=== PATIENT | female | born 1955 | race Caucasian/White ===

== ENCOUNTER → 2017-07-14 | Outpatient (CLI) | payer BC | END | disposition home or self-care (01) | LOC: LABWHC1 08:31 | PROVIDERS: ATTEND Family Medicine | DX: R61 Generalized hyperhidrosis (principal); R68.83 Chills (without fever) | CPT/HCPCS: 36415; 82024; 82533 ==

== ENCOUNTER → 2017-08-27 | Outpatient (CLI) | payer BC ==
[2017-08-27 17:54] LABS: ACTH <5.00 pg/mL (0.00-45.99)
== END | disposition home or self-care (01) ==
LOC: LABWHC1 09:48
PROVIDERS: ATTEND Internal Medicine Endocrinology, Diabetes & Metabolism
DX: R53.83 Other fatigue (principal)
CPT/HCPCS: 36415; 82024; 82533; 82728; 84146

== ENCOUNTER 2018-01-26 19:55 | Emergency (ER) | payer BC ==
[2018-01-26] MEDS ORDERED: SODIUM CHLORIDE 0.9% 1,000 ML IV STA ×2 (20:54→22:06)
--- NOTE | 2018-01-26 20:59 | ED ---
Abdominal Pain HPI - General Chief Complaint: Abdominal Pain Stated Complaint: nausea/tired Time Seen by Provider: 01/26/18 20:40 Source: patient, RN notes reviewed Mode of arrival: ambulatory Limitations: no limitations - History of Present Illness Initial Comments: This is a 62-year-old female that sensory benign past medical history except for many months of intermittent episodes of nausea feeling weak over last several days is had progressively worsening weakness and also nausea decreased oral intake and she also states she's had dark and black colored stools which she's never had before. He had extensive workups for this and started apparently in April of this year when her both became ill he is recovered but she has not. She does states she has some lower abdominal discomfort in addition to the above she has a fevers chills no sweats at this time though she did have that in the past no dysuria no hematuria. She also states her saliva seems be thicker. MD Complaint: abdominal pain, other - Related Data Home Medications Medication Instructions Recorded Confirmed No Known Home Medications 01/26/18 01/26/18 Allergies Allergy/AdvReac Type Severity Reaction Status Date / Time metoclopramide [From Reglan] AdvReac Nausea & Verified 01/26/18 20:36 Vomiting Review of Systems ROS Statement: Those systems with pertinent positive or pertinent negative responses have been documented in the HPI. ROS Other: All systems not noted in ROS Statement are negative. Past Medical History Past Medical History: No Reported History History of Any Multi-Drug Resistant Organisms: None Reported Past Surgical History: Tonsillectomy Past Psychological History: No Psychological Hx Reported Smoking Status: Never smoker Past Alcohol Use History: None Reported Past Drug Use History: None Reported General Exam - General Exam Comments Initial Comments: This is a well-developed asthenic appearing female who is awake alert oriented 3 Limitations: no limitations General appearance: alert, anxious Head exam: Present: atraumatic, normocephalic, normal inspection Eye exam: Present: normal appearance, PERRL, EOMI. Absent: scleral icterus, conjunctival injection, periorbital swelling ENT exam: Present: mucous membranes dry Neck exam: Present: normal inspection. Absent: tenderness, meningismus, lymphadenopathy Respiratory exam: Present: normal lung sounds bilaterally. Absent: respiratory distress, wheezes, rales, rhonchi, stridor Cardiovascular Exam: Present: regular rate, normal rhythm, normal heart sounds. Absent: systolic murmur, diastolic murmur, rubs, gallop, clicks GI/Abdominal exam: Present: soft, normal bowel sounds. Absent: distended, tenderness, guarding, rebound, rigid, bruit, pulsatile mass, hernia Rectal exam: Present: normal inspection, other (I did perform a rectal exam with a female nurse present no gross blood no hemorrhoids no masses Hemoccult is pending) Extremities exam: Present: normal inspection, full ROM, normal capillary refill. Absent: tenderness, pedal edema, joint swelling, calf tenderness Back exam: Present: normal inspection Neurological exam: Present: alert, oriented X3, CN II-XII intact Psychiatric exam: Present: normal affect, normal mood Skin exam: Present: warm, dry, intact, normal color. Absent: rash Course Vital Signs 01/26/18 01/26/18 01/26/18 20:14 20:32 20:40 Temperature 98.2 F Pulse Rate 90 79 81 Respiratory 20 16 16 Rate Blood Pressure 124/75 126/74 O2 Sat by Pulse 97 98 Oximetry 01/26/18 01/26/18 01/26/18 20:50 21:00 21:10 Temperature Pulse Rate 87 86 71 Respiratory 16 16 16 Rate Blood Pressure 126/74 112/79 O2 Sat by Pulse 98 99 98 Oximetry 01/26/18 01/26/18 01/26/18 21:20 21:30 21:40 Temperature Pulse Rate 83 70 70 Respiratory 19 26 H 11 L Rate Blood Pressure 112/79 112/79 112/79 O2 Sat by Pulse 98 97 98 Oximetry 01/26/18 01/26/18 01/26/18 21:50 22:00 22:10 Temperature Pulse Rate 72 70 73 Respiratory 11 L 12 22 Rate Blood Pressure 105/66 105/66 106/62 O2 Sat by Pulse 97 95 95 Oximetry 01/26/18 01/26/18 22:20 22:30 Temperature Pulse Rate 73 67 Respiratory 16 31 H Rate Blood Pressure 106/62 106/62 O2 Sat by Pulse 97 97 Oximetry Medical Decision Making - Medical Decision Making I did discuss findings with patient and her . Patient is demonstrating evidence of dehydration she received IV fluids she will be discharged with continued follow-up with her doctor and return when necessary the hepatitis panel is pending. The family is aware this. - Lab Data Result diagrams: 01/26/18 21:22 01/26/18 21:22 Lab Results 01/26/18 01/26/18 01/26/18 Range/Units 21:02 21:04 21:22 WBC (3.8-10.6) k/uL RBC (3.80-5.40) m/uL Hgb (11.4-16.0) gm/dL Hct (34.0-46.0) % MCV (80.0-100.0) fL MCH (25.0-35.0) pg MCHC (31.0-37.0) g/dL RDW (11.5-15.5) % Plt Count (150-450) k/uL Neutrophils % % Lymphocytes % % Monocytes % % Eosinophils % % Basophils % % Neutrophils # (1.3-7.7) k/uL Lymphocytes # (1.0-4.8) k/uL Monocytes # (0-1.0) k/uL Eosinophils # (0-0.7) k/uL Basophils # (0-0.2) k/uL Sodium 142 (137-145) mmol/L Potassium 4.4 (3.5-5.1) mmol/L Chloride 103 (98-107) mmol/L Carbon Dioxide 30 (22-30) mmol/L Anion Gap 9 mmol/L BUN 21 H (7-17) mg/dL Creatinine 0.66 (0.52-1.04) mg/dL Est GFR (CKD-EPI)AfAm >90 (>60 ml/min/1.73 sqM) Est GFR (CKD-EPI)NonAf >90 (>60 ml/min/1.73 sqM) Glucose 94 (74-99) mg/dL Plasma Lactic Acid Cm (0.7-2.0) mmol/L Calcium 10.0 (8.4-10.2) mg/dL Magnesium 2.2 (1.6-2.3) mg/dL Total Bilirubin 0.6 (0.2-1.3) mg/dL AST 21 (14-36) U/L ALT 27 (9-52) U/L Alkaline Phosphatase 51 (38-126) U/L Total Creatine Kinase (30-135) U/L CK-MB (CK-2) (0.0-2.4) ng/mL CK-MB (CK-2) Rel Index Troponin I (0.000-0.034) ng/mL Total Protein 7.2 (6.3-8.2) g/dL Albumin 4.4 (3.5-5.0) g/dL Amylase 61 (30-110) U/L Lipase 241 (23-300) U/L Urine Color Yellow Urine Appearance Clear (Clear) Urine pH 5.0 (5.0-8.0) Ur Specific [place] 1.020 (1.001-1.035) Urine Protein Negative (Negative) Urine Glucose (UA) Negative (Negative) Urine Ketones Negative (Negative) Urine Blood Negative (Negative) Urine Nitrite Negative (Negative) Urine Bilirubin Negative (Negative) Urine Urobilinogen <2.0 (<2.0) mg/dL Ur Leukocyte Esterase Small H (Negative) Urine RBC 4 (0-5) /hpf Urine WBC 8 H (0-5) /hpf Ur Squamous Epith Cells <1 (0-4) /hpf Amorphous Sediment Rare H (None) /hpf Urine Mucus Occasional H (None) /hpf Stool Occult Blood NEG (Negative) Hepatitis A IgM Ab Blood Type Blood Type Confirm Blood Type Recheck Antibody Screen Spec Expiration Date 01/26/18 01/26/18 01/26/18 Range/Units 21:22 21:22 21:22 WBC 8.6 (3.8-10.6) k/uL RBC 4.96 (3.80-5.40) m/uL Hgb 15.2 (11.4-16.0) gm/dL Hct 45.4 (34.0-46.0) % MCV 91.7 (80.0-100.0) fL MCH 30.6 (25.0-35.0) pg MCHC 33.4 (31.0-37.0) g/dL RDW 12.3 (11.5-15.5) % Plt Count 319 (150-450) k/uL Neutrophils % 73 % Lymphocytes % 18 % Monocytes % 7 % Eosinophils % 1 % Basophils % 1 % Neutrophils # 6.3 (1.3-7.7) k/uL Lymphocytes # 1.5 (1.0-4.8) k/uL Monocytes # 0.6 (0-1.0) k/uL Eosinophils # 0.0 (0-0.7) k/uL Basophils # 0.0 (0-0.2) k/uL Sodium (137-145) mmol/L Potassium (3.5-5.1) mmol/L Chloride (98-107) mmol/L Carbon Dioxide (22-30) mmol/L Anion Gap mmol/L BUN (7-17) mg/dL Creatinine (0.52-1.04) mg/dL Est GFR (CKD-EPI)AfAm (>60 ml/min/1.73 sqM) Est GFR (CKD-EPI)NonAf (>60 ml/min/1.73 sqM) Glucose (74-99) mg/dL Plasma Lactic Acid Cm 1.1 (0.7-2.0) mmol/L Calcium (8.4-10.2) mg/dL Magnesium (1.6-2.3) mg/dL Total Bilirubin (0.2-1.3) mg/dL AST (14-36) U/L ALT (9-52) U/L Alkaline Phosphatase (38-126) U/L Total Creatine Kinase 34 (30-135) U/L CK-MB (CK-2) 0.4 (0.0-2.4) ng/mL CK-MB (CK-2) Rel Index 1.2 Troponin I <0.012 (0.000-0.034) ng/mL Total Protein (6.3-8.2) g/dL Albumin (3.5-5.0) g/dL Amylase (30-110) U/L Lipase (23-300) U/L Urine Color Urine Appearance (Clear) Urine pH (5.0-8.0) Ur Specific [place] (1.001-1.035) Urine Protein (Negative) Urine Glucose (UA) (Negative) Urine Ketones (Negative) Urine Blood (Negative) Urine Nitrite (Negative) Urine Bilirubin (Negative) Urine Urobilinogen (<2.0) mg/dL Ur Leukocyte Esterase (Negative) Urine RBC (0-5) /hpf Urine WBC (0-5) /hpf Ur Squamous Epith Cells (0-4) /hpf Amorphous Sediment (None) /hpf Urine Mucus (None) /hpf Stool Occult Blood (Negative) Hepatitis A IgM Ab Blood Type Blood Type Confirm Blood Type Recheck Antibody Screen Spec Expiration Date 10/16/18 10/16/18 10/16/18 Range/Units 21:22 21:23 21:31 WBC (3.8-10.6) k/uL RBC (3.80-5.40) m/uL Hgb (11.4-16.0) gm/dL Hct (34.0-46.0) % MCV (80.0-100.0) fL MCH (25.0-35.0) pg MCHC (31.0-37.0) g/dL RDW (11.5-15.5) % Plt Count (150-450) k/uL Neutrophils % % Lymphocytes % % Monocytes % % Eosinophils % % Basophils % % Neutrophils # (1.3-7.7) k/uL Lymphocytes # (1.0-4.8) k/uL Monocytes # (0-1.0) k/uL Eosinophils # (0-0.7) k/uL Basophils # (0-0.2) k/uL Sodium (137-145) mmol/L Potassium (3.5-5.1) mmol/L Chloride (98-107) mmol/L Carbon Dioxide (22-30) mmol/L Anion Gap mmol/L BUN (7-17) mg/dL Creatinine (0.52-1.04) mg/dL Est GFR (CKD-EPI)AfAm (>60 ml/min/1.73 sqM) Est GFR (CKD-EPI)NonAf (>60 ml/min/1.73 sqM) Glucose (74-99) mg/dL Plasma Lactic Acid Cm (0.7-2.0) mmol/L Calcium (8.4-10.2) mg/dL Magnesium (1.6-2.3) mg/dL Total Bilirubin (0.2-1.3) mg/dL AST (14-36) U/L ALT (9-52) U/L Alkaline Phosphatase (38-126) U/L Total Creatine Kinase (30-135) U/L CK-MB (CK-2) (0.0-2.4) ng/mL CK-MB (CK-2) Rel Index Troponin I (0.000-0.034) ng/mL Total Protein (6.3-8.2) g/dL Albumin (3.5-5.0) g/dL Amylase (30-110) U/L Lipase (23-300) U/L Urine Color Urine Appearance (Clear) Urine pH (5.0-8.0) Ur Specific [place] (1.001-1.035) Urine Protein (Negative) Urine Glucose (UA) (Negative) Urine Ketones (Negative) Urine Blood (Negative) Urine Nitrite (Negative) Urine Bilirubin (Negative) Urine Urobilinogen (<2.0) mg/dL Ur Leukocyte Esterase (Negative) Urine RBC (0-5) /hpf Urine WBC (0-5) /hpf Ur Squamous Epith Cells (0-4) /hpf Amorphous Sediment (None) /hpf Urine Mucus (None) /hpf Stool Occult Blood (Negative) Hepatitis A IgM Ab NEGATIVE Blood Type A Negative Blood Type Confirm A Negative Blood Type Recheck CABO Indicated Antibody Screen NEGATIVE Spec Expiration Date 01/29/20182321 - Radiology Data Radiology results: report reviewed (I did review the imaging and report no acute findings.), image reviewed Disposition Clinical Impression: Dehydration, Weakness Disposition: HOME SELF-CARE Condition: Good Instructions: Dehydration (ED) Additional Instructions: Keep your follow-up appointments as planned and follow with her own physician. Is patient prescribed a controlled substance at d/c from ED?: No Referrals: Thierry Singh MD [Primary Care Provider] - 1-2 days
[2018-01-26 21:38] LABS: Basophils % (A) 1 %; Eosinophils % (A) 1 %; HCT 45.4 % (34.0-46.0); HGB 15.2 gm/dL (11.4-16.0); Lymphocytes # (A) 1.5 k/uL (1.0-4.8); Lymphocytes % (A) 18 %; MCH 30.6 pg (25.0-35.0); MCHC 33.4 g/dL (31.0-37.0); MCV 91.7 fL (80.0-100.0); Mean Platelet Volume 6.4; Monocytes # (A) 0.6 k/uL (0-1.0); Monocytes % (A) 7 %; Neutrophils # (A) 6.3 k/uL (1.3-7.7); Neutrophils % (A) 73 %; Platelet Count 319 k/uL (150-450); RBC 4.96 m/uL (3.80-5.40); RDW 12.3 % (11.5-15.5); WBC 8.6 k/uL (3.8-10.6)
[2018-01-26 21:47] LABS: ALT 27 U/L (9-52); AST 21 U/L (14-36); Albumin 4.4 g/dL (3.5-5.0); Alkaline Phosphatase 51 U/L (38-126); Amylase 61 U/L (30-110); Anion Gap 9 mmol/L; Blood Urea Nitrogen 21 mg/dL (7-17); Carbon Dioxide 30 mmol/L (22-30); Chloride 103 mmol/L (98-107); Glucose 94 mg/dL (74-99); Lipase 241 U/L (23-300); Magnesium 2.2 mg/dL (1.6-2.3); Potassium 4.4 mmol/L (3.5-5.1); Sodium 142 mmol/L (137-145); Total Bilirubin 0.6 mg/dL (0.2-1.3); Total Protein 7.2 g/dL (6.3-8.2)
[2018-01-26 21:49] LABS: Amorphous Sediment,Urine Rare /hpf; Appearance,Urine Clear (Clear); Bilirubin,Urine Negative (Negative); Blood,Urine Negative (Negative); Color,Urine Yellow; Glucose,Urine (UA) Negative (Negative); Ketones,Urine Negative (Negative); Leukocyte Esterase,Urine Small (Negative); Mucus,Urine Occasional /hpf; Nitrite,Urine Negative (Negative); Protein,Urine Negative (Negative); RBC,Urine 4 /hpf (0-5); Squamous Epithelial Cell,Urine <1 /hpf (0-4); Urobilinogen,Urine <2.0 mg/dL (<2.0); WBC,Urine 8 /hpf (0-5)
[2018-01-26 21:49] LABS: Creatine Kinase 34 U/L (30-135)
--- NOTE | 2018-01-26 21:49 | XR ---
EXAMINATION TYPE: XR chest 2V DATE OF EXAM: 01/26/2018 COMPARISON: NONE HISTORY: Abdominal pain TECHNIQUE: Frontal and lateral views of the chest are obtained. FINDINGS: Heart and mediastinum are normal. Lungs are clear. Diaphragm is normal. Bony thorax is int act. IMPRESSION: Normal chest.
--- NOTE | 2018-01-26 21:51 | XR ---
EXAMINATION TYPE: XR KUB DATE OF EXAM: 01/26/2018 COMPARISON: NONE HISTORY: Abdominal pain TECHNIQUE: Abdominal pain FINDINGS: There is no sign of intestinal obstruction or pneumoperitoneum. Fecal pattern is normal. Th ere is mild thoracolumbar dextroscoliosis. There are no pathologic calcifications over the kidneys. IMPRESSION: Nonacute abdomen.
[2018-01-26 22:02] LABS: Creatine Kinase MB 0.4 ng/mL (0.0-2.4); Troponin I <0.012 ng/mL (0.000-0.034)
[2018-01-26 22:26] LABS: Hepatitis A Antibody IgM NEGATIVE
[2018-01-26 23:18] VITALS: BP 118/70; PULSE 75; RESP 19; TEMP 99
[2018-01-27 04:26] LABS: Hepatitis B Core IgM Non-Reactive (Non-Reactive)
== END 2018-01-26 23:26 | disposition home or self-care (01) ==
LOC: EC 19:55
DX: E86.0 Dehydration (principal); R10.30 Lower abdominal pain, unspecified; R11.0 Nausea; Z88.8 Allergy status to other drugs, medicaments and biological substances
CPT/HCPCS: 36415; 71046; 74018; 80053; 80074; 81001; 82150; 82272; 82550; 82553; 83605; 83690; 83735; 84484; 85025; 86850; 86900; 86901; 96360; 96361; 99284

== ENCOUNTER 2023-08-04 17:26 | Observation (INO) | payer MEDICARE, BC ==
[2023-08-04 18:00] LABS: Basophils % (A) 0 %; Eosinophils # (A) 0.1 k/uL (0-0.7); Eosinophils % (A) 1 %; HCT 46.5 % (34.0-46.0); HGB 15.3 gm/dL (11.4-16.0); Lymphocytes # (A) 1.3 k/uL (1.0-4.8); Lymphocytes % (A) 12 %; MCH 30.4 pg (25.0-35.0); MCHC 32.9 g/dL (31.0-37.0); MCV 92.5 fL (80.0-100.0); Mean Platelet Volume 7.3; Monocytes # (A) 0.4 k/uL (0-1.0); Monocytes % (A) 4 %; Neutrophils # (A) 8.3 k/uL (1.3-7.7); Neutrophils % (A) 82 %; Platelet Count 274 k/uL (150-450); RBC 5.03 m/uL (3.80-5.40); WBC 10.2 k/uL (3.8-10.6)
--- NOTE | 2023-08-04 18:05 | CT ---
EXAMINATION TYPE: CT brain wo con DATE OF EXAM: 08/04/2023 COMPARISON: None INDICATION: AMS DLP: 1099.4 mGycm, Automated exposure control for dose reduction was used. CONTRAST: None CT of the brain is performed utilizing 3 mm thick sections through the posterior fossa and 3 mm thick sections through the remaining calvarium. Study is performed within 24 hours of arrival to the hosp ital. No abnormal hyperdensity is present to suggest an acute intracranial hemorrhage. No mass lesion is evident. No acute infarcts are evident. Ventricles and sulci are appropriate for the patient age. Paranasal sinuses and mastoid air cells within the [id number] are clear. IMPRESSION: 1. No acute intracranial process. Follow-up MRI can be performed as clinically indicated
[2023-08-04 18:07] LABS: INR 0.9 (<1.2); Partial Thromboplastin Time 24.2 sec (22.0-30.0); Prothrombin Time 10.4 sec (10.0-12.5)
[2023-08-04 18:11] LABS: ALT 20 U/L (4-34); AST 24 U/L (14-36); African American GFR (CKD) >90 (>60 ml/min/1.73 sqM); Albumin 4.9 g/dL (3.5-5.0); Alkaline Phosphatase 69 U/L (38-126); Anion Gap 8 mmol/L; Blood Urea Nitrogen 17 mg/dL (7-17); Calcium 10.5 mg/dL (8.4-10.2); Carbon Dioxide 29 mmol/L (22-30); Chloride 104 mmol/L (98-107); Glucose 126 mg/dL (74-99); Non-African American GFR(CKD) >90 (>60 ml/min/1.73 sqM); Potassium 4.6 mmol/L (3.5-5.1); Sodium 141 mmol/L (137-145); Total Bilirubin 0.8 mg/dL (0.2-1.3); Total Protein 7.5 g/dL (6.3-8.2)
--- NOTE | 2023-08-04 19:03 | ED ---
General Adult HPI - General Chief complaint: Altered Mental Status Stated complaint: AMS Time Seen by Provider: 08/04/23 17:35 Source: patient, family, RN notes reviewed, old records reviewed Mode of arrival: ambulatory Limitations: no limitations, altered mental status - History of Present Illness Initial comments: Is a 67-year-old female with no significant past medical history. Patient is brought in by family because she was having difficulty remembering things today she was at the dentist office with her about 10:00 this morning and she could not remember her age could not member the month or year. Patient continues to be repetitive patient has had no recent med changes patient has no trauma. Patient has no pain. Patient is just having trouble remembering and especially short-term memory as of today. Patient eventually was able to remember the date month and day but it was difficult for her to recall. Patient denies any similar history. - Related Data Home Medications Medication Instructions Recorded Confirmed Calcium Carbonate [Calcium] 1,200 mg PO DAILY 08/04/23 08/04/23 Cholecalciferol [Vitamin D3 (25 25 mcg PO DAILY 08/04/23 08/04/23 Mcg = 1000 Iu)] Multivitamins, Thera [Multivitamin 1 tab PO DAILY 08/04/23 08/04/23 (formulary)] Allergies Allergy/AdvReac Type Severity Reaction Status Date / Time metoclopramide [From Reglan] AdvReac [place] like Verified 08/04/23 19:39 mouth and stomach were on fire Review of Systems ROS Statement: Those systems with pertinent positive or pertinent negative responses have been documented in the HPI. ROS Other: All systems not noted in ROS Statement are negative. Past Medical History Past Medical History: No Reported History History of Any Multi-Drug Resistant Organisms: None Reported Past Surgical History: No Surgical Hx Reported, Tonsillectomy Past Psychological History: No Psychological Hx Reported Past Alcohol Use History: None Reported Past Drug Use History: None Reported General Exam - General Exam Comments Initial Comments: GENERAL: Patient is well-developed and well-nourished. Patient is nontoxic and well- hydrated and is in no acute distress. ENT: Neck is soft and supple. No significant lymphadenopathy is noted. Oropharynx is clear. Moist mucous membranes. Neck has full range of motion without eliciting any pain. EYES: The sclera were anicteric and conjunctiva were pink and moist. Extraocular movements were intact and pupils were equal round and reactive to light. Eyelids were unremarkable. PULMONARY: Unlabored respirations. Good breath sounds bilaterally. No audible rales rhonchi or wheezing was noted. CARDIOVASCULAR: There is a regular rate and rhythm without any murmurs gallops or rubs. ABDOMEN: Soft and nontender with normal bowel sounds. No palpable organomegaly was noted. SKIN: Skin is clear with no lesions or rashes and otherwise unremarkable. NEUROLOGIC: Patient is alert and oriented x3. Cranial nerves II through XII are grossly intact. Motor and sensory are also intact. Normal speech, volume and content. Symmetrical smile. Patient's NIH is 0. Patient was oriented x 3 but was slow to answer those questions. Family states since she has been in the room here she has asked 3 times for her to explain what happened at the dentist office today MUSCULOSKELETAL: Normal extremities with adequate strength and full range of motion. LYMPHATICS: No significant lymphadenopathy is noted PSYCHIATRIC: Normal psychiatric evaluation. Limitations: no limitations, altered mental status Course Vital Signs 08/04/23 08/04/23 08/04/23 17:36 17:39 18:47 Temperature 98 F 98 F 98.2 F Pulse Rate 93 93 89 Respiratory 16 16 16 Rate Blood Pressure 159/84 159/84 O2 Sat by Pulse 99 99 98 Oximetry Medical Decision Making - Medical Decision Making EKG was interpreted by myself. EKG shows a sinus rhythm at 84 bpm MI interval is 152 QRS is 84 QT interval 347 QTc is 388. Patient's EKG shows no ST segment elevation or depression. Was pt. sent in by a medical professional or institution (, PA, GEOLOGY SCIENTIST, urgent care, hospital, or retirement...) When possible be specific @ -No Did you speak to anyone other than the patient for history (EMS, parent, family, police, friend...)? What history was obtained from this source @ -No Did you review nursing and triage notes (agree or disagree)? Why? @ -I reviewed and agree with nursing and triage notes Were old charts reviewed (outside hosp., previous admission, EMS record, old EKG, old radiological studies, urgent care reports/EKG's, retirement records)? Report findings @ -No old charts were reviewed Differential Diagnosis (chest pain, altered mental status, abdominal pain women, abdominal pain men, vaginal bleeding, weakness, fever, dyspnea, syncope, headache, dizziness, GI bleed, back pain, seizure, CVA, palpatations, mental health, musculoskeletal)? @ -Differential Altered Mental Status: Hypoglycemia, DKA, hypercapnia, ETOH, overdose, CO poisoning, trauma, myxedema coma, HTN encephalopathy, infection, encephalitis, psychosis, intercranial hemorrhage, hepatic encephalopathy, meningitis, CVA, this is not meant to be an all-inclusive list EKG interpreted by me (3pts min.). @ -As above X-rays interpreted by me (1pt min.). @ -None done CT interpreted by me (1pt min.). @ -CT of the brain shows no acute abnormality U/S interpreted by me (1pt. min.). @ -None done What testing was considered but not performed or refused? (CT, X-rays, U/S, labs)? Why? @ -None What meds were considered but not given or refused? Why? @ -None Did you discuss the management of the patient with other professionals (professionals i.e. , PA, GEOLOGY SCIENTIST, lab, RT, psych nurse, health and social care teacher, display trimmer, teacher, business liaison officer, adult protective caseworker)? Give summary @ -I spoke with sound physicians they agreed to admit the patient Was smoking cessation discussed for >3mins.? @ -No Was critical care preformed (if so, how long)? @ -No Were there social determinants of health that impacted care today? How? (Homelessness, low income, unemployed, alcoholism, drug addiction, transportation, low edu. Level, literacy, decrease access to med. care, shelter, rehab)? @ -No Was there de-escalation of care discussed even if they declined (Discuss DNR or withdrawal of care, Hospice)? DNR status @ -No What co-morbidities impacted this encounter? (DM, HTN, Smoking, COPD, CAD, Cancer, CVA, ARF, Chemo, Hep., AIDS, mental health diagnosis, sleep apnea, morbid obesity)? @ -None Was patient admitted / discharged? Hospital course, mention meds given and route, prescriptions, significant lab abnormalities, going to OR and other perti nent info. @ -Patient's lab work and CT of the brain all came back normal. I went back in to give the results to the patient and the family and the patient continued to be very repetitive and forgot today's events even though they have discussed the multiple times. Undiagnosed new problem with uncertain prognosis? @ -No Drug Therapy requiring intensive monitoring for toxicity (Heparin, Nitro, Ins ulin, Cardizem)? @ -No Were any procedures done? @ -No Diagnosis/symptom? @ -Altered mental status Acute, or Chronic, or Acute on Chronic? @ -Acute Uncomplicated (without systemic symptoms) or Complicated (systemic symptoms)? @ -Comp Side effects of treatment? @ -No Exacerbation, Progression, or Severe Exacerbation? @ -No Poses a threat to life or bodily function? How? (Chest pain, [place], [place], pneumonia, PE, COPD, DKA, ARF, appy, cholecystitis, CVA, Diverticulitis, Homicidal, Suicidal, threat to staff... and all critical care pts) @ -Yes this could lead to a CVA and endorgan dysfunction - Lab Data Result diagrams: 08/04/23 17:42 08/04/23 17:42 Lab Results 08/04/23 08/04/23 08/04/23 Range/Units 17:42 17:42 17:42 WBC 10.2 (3.8-10.6) k/uL RBC 5.03 (3.80-5.40) m/uL Hgb 15.3 (11.4-16.0) gm/dL Hct 46.5 H (34.0-46.0) % MCV 92.5 (80.0-100.0) fL MCH 30.4 (25.0-35.0) pg MCHC 32.9 (31.0-37.0) g/dL RDW 12.0 (11.5-15.5) % Plt Count 274 (150-450) k/uL MPV 7.3 Neutrophils % 82 % Lymphocytes % 12 % Monocytes % 4 % Eosinophils % 1 % Basophils % 0 % Neutrophils # 8.3 H (1.3-7.7) k/uL Lymphocytes # 1.3 (1.0-4.8) k/uL Monocytes # 0.4 (0-1.0) k/uL Eosinophils # 0.1 (0-0.7) k/uL Basophils # 0.0 (0-0.2) k/uL PT 10.4 (10.0-12.5) sec INR 0.9 (<1.2) APTT 24.2 (22.0-30.0) sec Sodium 141 (137-145) mmol/L Potassium 4.6 (3.5-5.1) mmol/L Chloride 104 (98-107) mmol/L Carbon Dioxide 29 (22-30) mmol/L Anion Gap 8 mmol/L BUN 17 (7-17) mg/dL Creatinine 0.57 (0.52-1.04) mg/dL Est GFR (CKD-EPI)AfAm >90 (>60 ml/min/1.73 sqM) Est GFR (CKD-EPI)NonAf >90 (>60 ml/min/1.73 sqM) Glucose 126 H (74-99) mg/dL Calcium 10.5 H (8.4-10.2) mg/dL Total Bilirubin 0.8 (0.2-1.3) mg/dL AST 24 (14-36) U/L ALT 20 (4-34) U/L Alkaline Phosphatase 69 (38-126) U/L Troponin I (0.000-0.034) ng/mL Total Protein 7.5 (6.3-8.2) g/dL Albumin 4.9 (3.5-5.0) g/dL Urine Color Urine Appearance (Clear) Urine pH (5.0-8.0) Ur Specific [place] (1.001-1.035) Urine Protein (Negative) Urine Glucose (UA) (Negative) Urine Ketones (Negative) Urine Blood (Negative) Urine Nitrite (Negative) Urine Bilirubin (Negative) Urine Urobilinogen (<2.0) mg/dL Ur Leukocyte Esterase (Negative) Urine RBC (0-5) /hpf Urine WBC (0-5) /hpf Urine Mucus (None) /hpf Urine Opiates Screen (NotDetected) Ur Oxycodone Screen (NotDetected) Urine Methadone Screen (NotDetected) Ur Barbiturates Screen (NotDetected) U Tricyclic Antidepress (NotDetected) Ur Phencyclidine Scrn (NotDetected) Ur Amphetamines Screen (NotDetected) U Methamphetamines Scrn (NotDetected) U Benzodiazepines Scrn (NotDetected) Urine Cocaine Screen (NotDetected) U Marijuana (THC) Screen (NotDetected) 08/04/23 08/04/23 Range/Units 17:42 19:03 WBC (3.8-10.6) k/uL RBC (3.80-5.40) m/uL Hgb (11.4-16.0) gm/dL Hct (34.0-46.0) % MCV (80.0-100.0) fL MCH (25.0-35.0) pg MCHC (31.0-37.0) g/dL RDW (11.5-15.5) % Plt Count (150-450) k/uL MPV Neutrophils % % Lymphocytes % % Monocytes % % Eosinophils % % Basophils % % Neutrophils # (1.3-7.7) k/uL Lymphocytes # (1.0-4.8) k/uL Monocytes # (0-1.0) k/uL Eosinophils # (0-0.7) k/uL Basophils # (0-0.2) k/uL PT (10.0-12.5) sec INR (<1.2) APTT (22.0-30.0) sec Sodium (137-145) mmol/L Potassium (3.5-5.1) mmol/L Chloride (98-107) mmol/L Carbon Dioxide (22-30) mmol/L Anion Gap mmol/L BUN (7-17) mg/dL Creatinine (0.52-1.04) mg/dL Est GFR (CKD-EPI)AfAm (>60 ml/min/1.73 sqM) Est GFR (CKD-EPI)NonAf (>60 ml/min/1.73 sqM) Glucose (74-99) mg/dL Calcium (8.4-10.2) mg/dL Total Bilirubin (0.2-1.3) mg/dL AST (14-36) U/L ALT (4-34) U/L Alkaline Phosphatase (38-126) U/L Troponin I <0.012 (0.000-0.034) ng/mL Total Protein (6.3-8.2) g/dL Albumin (3.5-5.0) g/dL Urine Color Colorless Urine Appearance Clear (Clear) Urine pH 6.0 (5.0-8.0) Ur Specific [place] 1.011 (1.001-1.035) Urine Protein Negative (Negative) Urine Glucose (UA) Negative (Negative) Urine Ketones 2+ H (Negative) Urine Blood Small H (Negative) Urine Nitrite Negative (Negative) Urine Bilirubin Negative (Negative) Urine Urobilinogen <2.0 (<2.0) mg/dL Ur Leukocyte Esterase Small H (Negative) Urine RBC 6 H (0-5) /hpf Urine WBC 13 H (0-5) /hpf Urine Mucus Rare H (None) /hpf Urine Opiates Screen Not Detected (NotDetected) Ur Oxycodone Screen Not Detected (NotDetected) Urine Methadone Screen Not Detected (NotDetected) Ur Barbiturates Screen Not Detected (NotDetected) U Tricyclic Antidepress Not Detected (NotDetected) Ur Phencyclidine Scrn Not Detected (NotDetected) Ur Amphetamines Screen Not Detected (NotDetected) U Methamphetamines Scrn Not Detected (NotDetected) U Benzodiazepines Scrn Not Detected (NotDetected) Urine Cocaine Screen Not Detected (NotDetected) U Marijuana (THC) Screen Not Detected (NotDetected) Disposition Clinical Impression: Altered mental status Disposition: ADMITTED IP TO THIS HOSP Referrals: None,Stated [REFERRING] - 1-2 days Time of Disposition: 20:33
[2023-08-04 19:15] LABS: Appearance,Urine Clear (Clear); Bilirubin,Urine Negative (Negative); Blood,Urine Small (Negative); Color,Urine Colorless; Glucose,Urine (UA) Negative (Negative); Ketones,Urine 2+ (Negative); Leukocyte Esterase,Urine Small (Negative); Mucus,Urine Rare /hpf; Nitrite,Urine Negative (Negative); Protein,Urine Negative (Negative); RBC,Urine 6 /hpf (0-5); Specific Gravity,Urine 1.011 (1.001-1.035); Urobilinogen,Urine <2.0 mg/dL (<2.0); WBC,Urine 13 /hpf (0-5)
[2023-08-04 19:21] LABS: Amphetamine Screen,Urine Not Detected (NotDetected); Barbiturate Screen,Urine Not Detected (NotDetected); Benzodiazepines Screen,Urine Not Detected (NotDetected); Cocaine Screen,Urine Not Detected (NotDetected); Methadone Screen, Urine Not Detected (NotDetected); Opiate Screen,Urine Not Detected (NotDetected); Oxycodone Screen, Urine Not Detected (NotDetected); Phencyclidine Screen,Urine Not Detected (NotDetected); Tricyclic Antidepressant,Urine Not Detected (NotDetected); Urn Cannabinoid Scrn Not Detected (NotDetected)
[2023-08-04] MEDS: cefTRIAXone IN SWFI 1,000 MG/10 ML SYRINGE IVP STA (20:44)
[2023-08-04] MEDS: SODIUM CHLORIDE 0.9% 1,000 ML IV ONE (20:48)
[2023-08-04] MEDS: ASPIRIN 325 MG TAB PO STA (20:49)
--- NOTE | 2023-08-05 01:06 | P.HPIM ---
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 Family got concerned and decided to bring her to the hospital the hallway to the hospital which was about 50 minutes she kept asking the same questions over and over again which did not make any sense to the family, was out of character for the patient, otherwise no report of any fevers chills headache changes in vision or hearing no report of any facial droop changes in speech, no report of any weakness numbness tingling in her upper or lower extremities no falls no head injuries. Patient denies any history of stroke or TIAs. While interviewing the patient she seems to have short-term memory loss and she keeps repeating the same questions and will have the same reactions every time I mentioned that were suspecting a stroke she seems to be surprised and as if she is hearing it for the first time. Patient daughter and were at bedside assisting with history taking Otherwise the patient seems to be very pleasant and with elevated mood. She is very talkative however forgetful. No report of tobacco smoking illicit drugs or heavy alcohol review of systems Pertinent positives as noted in HPI. All other systems were reviewed and are negative on exam Constitutional: No acute distress, conversant, pleasant Eyes: Anicteric sclerae, moist conjunctiva, Pupils equal round reactive to light ENMT: NC/AT Oropharynx clear, no erythema, or exudates Neck: Supple, no masses, or JVD No carotid bruits No thyromegaly Lungs: Clear to auscultation Clear to percussion Normal respiratory effort, no accessory muscle use Cardiovascular: Heart regular in rate and rhythm, No murmurs, gallops, or rubs No peripheral edema Abdominal: Soft Nontender, no guarding, rebound or rigidity Abdomen moving with respiration Normoactive bowel sounds Extremities: No digital cyanosis No clubbing Pedal pulses intact and symmetrical Radial pulses intact and symmetrical No calf tenderness Psychiatric: Alert and oriented to person, place Neuro Muscles Strength 5/5 in all 4 extremities Sensation to light touch grossly present throughout Cranial nerves II-XII grossly intact finger-nose exam intact heel dove exam intact Lymphatics: no palpable cervical or supraclavicular lymph nodes Past Medical History Past Medical History: No Reported History History of Any Multi-Drug Resistant Organisms: None Reported Past Surgical History: No Surgical Hx Reported, Tonsillectomy Past Psychological History: No Psychological Hx Reported Past Alcohol Use History: None Reported Past Drug Use History: None Reported Medications and Allergies Home Medications Medication Instructions Recorded Confirmed Type Calcium Carbonate [Calcium] 1,200 mg PO DAILY 08/04/23 08/04/23 History Cholecalciferol [Vitamin D3 (25 25 mcg PO DAILY 08/04/23 08/04/23 History Mcg = 1000 Iu)] Multivitamins, Thera [Multivitamin 1 tab PO DAILY 08/04/23 08/04/23 History (formulary)] Allergies Allergy/AdvReac Type Severity Reaction Status Date / Time metoclopramide [From Reglan] AdvReac [place] like Verified 08/04/23 19:39 mouth and stomach were on fire Physical Exam Vitals: Vital Signs Temp Pulse Resp BP Pulse Ox 08/04/23 23:00 80 17 104/71 95 08/04/23 21:00 85 19 135/85 97 08/04/23 20:45 98.4 F 93 17 137/77 97 08/04/23 18:47 98.2 F 89 16 98 08/04/23 17:39 98 F 93 16 159/84 99 08/04/23 17:36 98 F 93 16 159/84 99 Intake and Output 08/04/23 08/04/23 08/05/23 14:59 22:59 06:59 Other: Weight 49.895 kg Results CBC & Chem 7: 08/04/23 17:42 08/04/23 17:42 Labs: Abnormal Lab Results - Last 24 Hours (Table) 08/04/23 08/04/23 08/04/23 Range/Units 17:42 17:42 19:03 Hct 46.5 H (34.0-46.0) % Neutrophils # 8.3 H (1.3-7.7) k/uL Glucose 126 H (74-99) mg/dL Calcium 10.5 H (8.4-10.2) mg/dL Urine Ketones 2+ H (Negative) Urine Blood Small H (Negative) Ur Leukocyte Esterase Small H (Negative) Urine RBC 6 H (0-5) /hpf Urine WBC 13 H (0-5) /hpf Urine Mucus Rare H (None) /hpf Assessment and Plan Assessment: 67-year-old female no significant past medical history coming into the hospital for evaluation of behavioral changes confusion disorientation repeating same questions short term memory loss I discussed case with ED doctor accepted the admission for possible stroke for neurologic evaluation with anticipated length of stay more than 2 midnights Confusion disorientation suspected underlying ischemic stroke CT of the brain no acute intracranial pathology Check carotid ultrasound Check echocardiogram Check lipid profile Patient started on full dose aspirin, statin 40 mg p.o. daily Continue with neurochecks Fall precautions PT/OT evaluation Allow for permissive hypertension Gentle IV fluid hydration normal saline Blood work showing white count of 10.2, urine analysis unremarkable, patient denies any urinary symptoms Patient received 2 doses of Rocephin antibiotic in the ED will discontinue for now and monitor off antibiotics Patient afebrile Renal function unremarkable sodium 141 potassium 4.6 BUN 17 creatinine 0.5 Urine drug screen negative Full code DVT prophylaxis heparin subcu 3 times daily
[2023-08-05] MEDS: ASPIRIN 325 MG TAB PO SCH (08:13)
[2023-08-05] MEDS: ATORVASTATIN 40 MG TAB PO SCH (08:13)
[2023-08-05] MEDS: HEPARIN SODIUM,PORCINE 5,000 UNIT/ML 1 ML VIAL SQ SCH (08:13)
--- NOTE | 2023-08-05 13:10 | CA ---
Transthoracic Echo Report Name: Sherry Gillis Age: 67 Gender: F : 1955 Exam Date: 08/05/2023 07:41 Exam Location: [place] [facility] Ht (in): 63 Wt (lb): 110 Ordering Physician: Jaime Perez MD Attending/Referring Phys: [id number], Chris Texturing Machine Fixer Gerda Ramsey, ANGELO Procedure CPT: Indications: With bubble study, possible stroke Cardiac Hx: Technical Quality: Good Contrast 1: Agitated Saline Total Dose (mL): Contrast 2: Total Dose (mL): MEASUREMENTS (Male / Female) Normal Values 2D ECHO LV Diastolic Diameter PLAX 3.7 cm 4.2 - 5.9 / 3.9 - 5.3 cm LV Systolic Diameter PLAX 2.4 cm IVS Diastolic Thickness 0.7 cm 0.6 - 1.0 / 0.6 - 0.9 cm LVPW Diastolic Thickness 0.7 cm 0.6 - 1.0 / 0.6 - 0.9 cm LV Relative Wall Thickness 0.4 RV Internal Dim ED PLAX 2.6 cm LA Systolic Diameter LX 2.5 cm 3.0 - 4.0 / 2.7 - 3.8 cm LV Diastolic Volume MOD BP 51.7 cm??? 67 - 155 / 56 - 104 cm??? LV Systolic Volume MOD BP 12.5 cm??? 22 - 58 / 19 - 49 cm??? LV Ejection Fraction MOD BP 75.8 % >= 55 % LV Cardiac Index MOD BP 2059.2 cm???/min???m??? LV Diastolic Volume MOD 4C 45.4 cm??? LV Systolic Volume MOD 4C 11.5 cm??? LV Ejection Fraction MOD 4C 74.7 % LV Cardiac Index MOD 4C 1778.5 cm???/min???m??? LV Diastolic Length 4C 6.9 cm LV Systolic Length 4C 4.9 cm LV Diastolic Volume MOD 2C 49.3 cm??? LV Systolic Volume MOD 2C 13.4 cm??? LV Ejection Fraction MOD 2C 72.7 % LV Cardiac Index MOD 2C 1882.0 cm???/min???m??? LV Diastolic Length 2C 5.7 cm LV Systolic Length 2C 4.8 cm M-MODE Aortic Root Diameter MM 2.4 cm LA Systolic Diameter MM 3.2 cm LA Ao Ratio MM 1.4 DOPPLER AV Peak Velocity 168.8 cm/s AV Peak Gradient 11.4 mmHg AI Peak Velocity 381.7 cm/s AI Peak Gradient 58.3 mmHg AI Pressure Half Time 712.4 ms Mitral E Point Velocity 85.8 cm/s Mitral A Point Velocity 82.1 cm/s Mitral E to A Ratio 1.0 MV Deceleration Time 213.1 ms MV E' Velocity 8.2 cm/s Mitral E to MV E' Ratio 10.4 TR Peak Velocity 233.5 cm/s TR Peak Gradient 21.8 mmHg Right Ventricular Systolic Press 26.9 mmHg FINDINGS Left Ventricle Left ventricular ejection fraction is estimated at 60-65%. Normal Left ventricular size, wall thickness, systolic function with no obvious regional wall motion abnormalities. Normal Left ventricular diastolic filling pattern. Right Ventricle Right ventricle at upper limits of normal. Right ventricular systolic pressure within normal limits. Right Atrium Mild right atrial dilatation. Negative agitated saline bubble study for right to left shunt. Left Atrium Normal left atrial size. No spontaneous echo contrast seen in the left atrium. No patent foramen ovale. No evidence for an atrial septal defect. Mitral Valve Structurally normal mitral valve. No mitral stenosis. Mild mitral regurgitation. Aortic Valve Trileaflet aortic valve. Mild aortic regurgitation. No aortic stenosis. Tricuspid Valve Structurally normal tricuspid valve. Moderate tricuspid regurgitation. Pulmonic Valve Structurally normal pulmonic valve. No pulmonic stenosis. No pulmonic regurgitation. Pericardium No pericardial or pleural effusion. Aorta Normal size aortic root and proximal ascending aorta. CONCLUSIONS Normal LV systolic function Mild biatrial enlargement Previewed by: Dr. Dion Olea MD (Electronically Signed) Final Date: 05 August 2023 13:09
--- NOTE | 2023-08-05 14:28 | P.PN ---
Subjective Progress Note Date: 08/05/23 67-year-old female with no significant past medical history presents the ED. She was at her dentist appointment when she started having behavioral changes with disorientation and confusion. She was found to be repeating the same sentences. Her family got concerned which prompted them to bring her to the ED. Denies facial droop, focal neurologic deficit. No falls or head trauma. No history of CVA or [place]. In the ED, she underwent extensive evaluation. BP 159/84, HR 93, RR 16, T 98F, 99% on RA. CBC, coag panel, CMP performed significant for hematocrit of 46.5, glucose 126 and calcium 10.5. Troponin less than 0.012. Urinalysis 2+ ketone, small blood, small leukocyte esterase with [address] brain negative for acute process. EKG sinus rhythm with no ST elevation or depression. Patient is admitted for further workup and management. 08/04 Patient was seen and examined. Family at bedside. Forgetfulness improved reported by family. No concerns. UDS negative. Echocardiogram normal preserved EF mild MR/AR/TR. General: non toxic, no distress, appears at stated age Derm: warm, dry Head: atraumatic, normocephalic, symmetric Eyes: EOMI, no lid lag, anicteric sclera Mouth: no lip lesion, mucus membranes moist Cardiovascular: S1S2 reg, no murmur Lungs: CTA bilateral, no rhonchi, no rales , no accessory muscle use Ext: no gross muscle atrophy, no edema, no contractures Neuro: no focal neuro deficits Psych: Alert, oriented, appropriate affect Based on my assessment of this patient, this patient meets a high complexity level of care. Patient has an acute diagnosis of forgetfulness and confusion that poses a threat to life or bodily function. Forgetfulness and Confusion: CVA workup. MRI brain ordered. Echo. Carotid doppler. A1c and Lipid panel. PT/OT/ST consult. Telemetry monitoring. Advanced neurochecks. Neurology consulted. Abnormal UA: No urinary symptoms. No treatment. CODE STATUS: FULL CODE DVT Prophylaxis: Heparin GI Prophylaxis: Designated medical POA if patient is not able to make medical decisions for themselves: I have reviewed the following licensed tax consultant notes: I have reviewed the results of the following tests: Echo. UDS. I have ordered the following tests: MRI brain. I have discussed the care of this patient with the following independent historian: I have independently interpreted the following test below: I have discussed the management of this patient with the following physician: Dr. Irizarry Objective - Vital Signs Vital signs: Vital Signs Temp 97.8 F 08/05/23 07:44 Pulse 80 08/05/23 07:44 Resp 16 08/05/23 07:44 BP 111/73 08/05/23 07:44 Pulse Ox 97 08/05/23 07:44 FiO2 Intake & Output 08/04/23 08/05/23 08/05/23 18:59 06:59 18:59 Weight 49.895 kg - Labs CBC & Chem 7: 08/04/23 17:42 08/04/23 17:42 Labs: Abnormal Lab Results - Last 24 Hours (Table) 08/04/23 08/04/23 08/04/23 Range/Units 17:42 17:42 19:03 Hct 46.5 H (34.0-46.0) % Neutrophils # 8.3 H (1.3-7.7) k/uL Glucose 126 H (74-99) mg/dL Calcium 10.5 H (8.4-10.2) mg/dL Urine Ketones 2+ H (Negative) Urine Blood Small H (Negative) Ur Leukocyte Esterase Small H (Negative) Urine RBC 6 H (0-5) /hpf Urine WBC 13 H (0-5) /hpf Urine Mucus Rare H (None) /hpf
[2023-08-05 15:35] LABS: LDL Cholesterol,Calculated 123.2 mg/dL (0.0-131.0); VLDL Calculation 14.78 mg/dL (5.00-40.00)
--- NOTE | 2023-08-05 16:07 | MR ---
EXAMINATION TYPE: MR brain wo con DATE OF EXAM: 08/05/2023 COMPARISON: 08/04/2023 CT HISTORY: CVA. CONTRAST: Performed utilizing 0 mL intravenous Gadavist gadolinium contrast. TECHNIQUE: Multiplanar, multiecho imaging on a 3.0 [place] magnet is performed through the brain. Stud y is performed within 24 hours of arrival to the hospital. The craniovertebral junction is normal. The pituitary is normal. Diffusion-weighted imaging is performed. No abnormal hyperintensity is present to suggest an acute i ntracranial infarct or acute ischemic change. There is a punctate hyperintensity in subcortical white matter left frontal lobe. Series 601 image 27 . Subcortical white matter changes in the right frontal lobe, series 601 image 2221 Ventricles and sulci are appropriate for the patient age. IMPRESSION: 1. Couple of nonspecific punctate subcortical white matter changes within the frontal lobes. Findings are nonspecific but could be related to migraine headaches. Microvascular ischemic change, vasculiti s, multiple sclerosis could be considered within the differential. 2. No acute intracranial process evident.
--- NOTE | 2023-08-05 17:13 | P.CNNES ---
History of Present Illness Consult date: 08/05/23 Requesting physician: Sage Calvillo Reason for Consult: altered mental status, short term memory loss History of Present Illness: this is a 67-year-old woman who presented emergency department because of confusion. Patient stated that yesterday at 12:30 PM she was notified that she was confused when she was repeating herself per family members. 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 She was repeating the same questions. Patient does not recall the episode. She denies of any fever, focal weakness, numbness, denies any headache. Fenies any similar episodes like this in the past.denies of any recent travels or any sick contacts. She denies any history of stroke, TIAs or seizures.she denies of any tobacco use or illicit drug use or alcohol use. some of the workup during his hospital visit consisted of: White blood cell is normal. Sodium is 141, creatinine is 0.57, calcium 7.5, AST ALT is within normal limits Initial serum glucose is 126 Lipid panel is a triglyceride of 73, cholesterol 253, LDLs [address] of the head is reported as no acute intracranial process. I personally reviewed the CT of the head and I agree there is no acute subacute process. 2-D echo was reported as normal left ventricle. Function. Mild biatrial enlargement. No evidence for atrial septal defect. Review of Systems the positive and negative as per HPI. Past Medical History Past Medical History: No Reported History History of Any Multi-Drug Resistant Organisms: None Reported Past Surgical History: No Surgical Hx Reported, Tonsillectomy Past Psychological History: No Psychological Hx Reported Past Alcohol Use History: None Reported Past Drug Use History: None Reported Medications and Allergies Home Medications Medication Instructions Recorded Confirmed Type Calcium Carbonate [Calcium] 1,200 mg PO DAILY 08/04/23 08/04/23 History Cholecalciferol [Vitamin D3 (25 25 mcg PO DAILY 08/04/23 08/04/23 History Mcg = 1000 Iu)] Multivitamins, Thera [Multivitamin 1 tab PO DAILY 08/04/23 08/04/23 History (formulary)] Allergies Allergy/AdvReac Type Severity Reaction Status Date / Time metoclopramide [From Reglan] AdvReac [place] like Verified 08/04/23 19:39 mouth and stomach were on fire Physical Examination - Vital Signs Vital Signs: Vital Signs Temp Pulse Resp BP Pulse Ox 08/05/23 12:57 98.2 F 77 17 119/68 97 08/05/23 07:44 97.8 F 80 16 111/73 97 08/05/23 06:00 69 17 104/65 95 08/05/23 03:00 69 17 108/68 95 08/04/23 23:00 80 17 104/71 95 08/04/23 21:00 85 19 135/85 97 08/04/23 20:45 98.4 F 93 17 137/77 97 08/04/23 18:47 98.2 F 89 16 98 08/04/23 17:39 98 F 93 16 159/84 99 08/04/23 17:36 98 F 93 16 159/84 99 GENERAL: The patient is lying in bed and is not in acute distress. NEUROLOGICAL: Higher mental function: The patient is awake, alert, oriented to self, place and time. Patient is following commands. No aphasia and no neglect. Cranial nerves: The pupils are round, equal and reactive to light and accommodation. Visual harvey are full to confrontation throughout. Extraocular movement is intact no nystagmus is noted. Facial sensation is normal to touch throughout. The facial strength is normal throughout. Hearing is normal bilaterally to hand rub. Tongue is midline and moved [id number] without any difficulty. No dysarthria is noted. Shoulder shrug is normal bilaterally. Motor: The strength is 5 over 5 throughout. Normal tone and bulk. Cerebellum: Normal finger to nose heel to dove bilaterally. Sensation: Sensation is normal to touch throughout. Reflexes (right/left): 2+ throughout. Plantars are downgoing bilaterally. Results - Laboratory Findings CBC and BMP: 08/04/23 17:42 08/04/23 17:42 Abnormal Lab Findings: Abnormal Labs 08/04/23 08/04/23 08/04/23 17:42 17:42 17:42 Hct 46.5 H Neutrophils # 8.3 H Glucose 126 H Calcium 10.5 H Cholesterol 253.00 H HDL Cholesterol 115.00 H Urine Ketones Urine Blood Ur Leukocyte Esterase Urine RBC Urine WBC Urine Mucus 08/04/23 19:03 Hct Neutrophils # Glucose Calcium Cholesterol HDL Cholesterol Urine Ketones 2+ H Urine Blood Small H Ur Leukocyte Esterase Small H Urine RBC 6 H Urine WBC 13 H Urine Mucus Rare H Assessment and Plan Assessment: This is a 67-year-old gentleman who presented to the hospital yesterday because of confusion and repeating herself. patient does not recall the episodes. On examination she has no focal deficit is back to baseline. Transient episode of confusion repeating herself: Unknown exact etiology/encephalopathy of unknown etiology. Rule out acute strokepatient is afebrile and normal white blood cell. neurally elevated hypertension on presentation as high as 150s over 80s Plan: I ordered vitamin B12, folate, TSH ordered ammonia level and ionized calcium routine EEG and MRI ordered by the primary team is pending carotid duplex is a completed and is pending She was given aspirin 325 once by the ED physician. She was started on aspirin 81 mg daily and Lipitor 40 mg daily by the primary team Continue neurochecks Cardiac monitoring PT OT and [employer] OFFICER are consulted We'll defer the rest of the medical management to primary team For DVT prophylaxis the patient is on subcu heparin The plan is discussed with patient and primary team. Thank you for the consultation Time with Patient: Greater than 30
[2023-08-05 18:01] LABS: Ionized Calcium 4.9 mg/dL (4.5-5.3)
--- NOTE | 2023-08-05 20:47 | US ---
EXAMINATION TYPE: US carotid duplex BILAT DATE OF EXAM: 08/05/2023 COMPARISON: NONE CLINICAL INDICATION: Female, 67 years old with history of possible stroke; stroke TECHNIQUE: Carotid duplex ultrasound examination. Indirect Doppler criteria was utilized. FINDINGS: EXAM MEASUREMENTS: RIGHT: Peak Systolic Velocity (PSV) cm/sec ----- Right CCA: 64.8 ----- Right ICA: 58.4 ----- Right ECA: 79.0 ICA/CCA ratio: 0.9 RIGHT: End Diastole cm/sec ----- Right CCA: 14.0 ----- Right ICA: 21.1 ----- Right ECA: 10.9 LEFT: Peak Systolic Velocity (PSV) cm/sec ----- Left CCA: 60.7 ----- Left ICA: 69.8 ----- Left ECA: 73.6 ICA/CCA ratio: 1.1 LEFT: End Diastole cm/sec ----- Left CCA: 16.7 ----- Left ICA: 27.0 ----- Left ECA: 12.8 VERTEBRALS (direction of flow): Right Vertebral: Antegrade Left Vertebral: Antegrade Rhythm: abnormal waveform noted on image #45 [employer] SCI[employer]ES DEPARTMENT CHAIR NOTES: no elevated ratios, velocities, or stenosis. mild plaque. There is an area of prom inent plaque at the left ICA IMPRESSION: 1. The plant utility person notes an aberrant waveform on image 45, likely corresponding to a PVC. Clinicall y correlate. 2. Prominent plaque left ICA but without any hemodynamically significant stenosis detected. Criteria for Assigning % of Stenosis / Diameter reduction (Estimation based on the indirect measurements of the internal carotid artery velocities (ICA PSV). 1. Normal (no stenosis)=ICA PSV < 125 cm/s: ratio < 2.0: ICA EDV<40 cm/s. 2. Less than 50% stenosis=ICA PSV < 125 cm/s: ratio < 2.0: ICA EDV<40 cm/s. 3. 50 to 69% stenosis=ICA PSV of 125 to 230 cm/s: ration 2.0 ? 4.0: ICA EDV 40-100 cm/s. 4. Greater than 70% stenosis to near occlusion= ICA PSV > 230 cm/s: ratio > 4.0: ICA EDV > 100 cm/s. 5. Near occlusion= ICA PSV velocities may be low or undetectable: variable ratio and ICA EDV. 6. Total occlusion=unable to detect flow.
--- NOTE | 2023-08-06 00:20 | EEG ---
ELECTROENCEPHALOGRAM REPORT CLINICAL HISTORY: This is a 67-year-old woman with episode of confusion. The video EEG is obtained to evaluate for seizure epileptiform activity. RELEVANT MEDICATIONS: The patient is not on any antiepileptic drugs. EEG TYPE: This is a routine 21-channel EEG with video using the 10/20 electrode placement system. DESCRIPTION: Wakefulness is only obtained. During awake state, the posterior-dominant rhythm consists of [id number] voltage of 9.5 to 10 hertz activity, that is well modulated sustained. There is no physiological stage 2 sleep architecture. There is no focal slowing. Interictal and ictal is none. ACTIVATION PROCEDURE: Photic stimulation did not evoke a posterior driving response. There is no abnormality during the photic stimulation. Hyperventilation is not performed. CLINICAL INTERPRETATION: This is a normal routine EEG. There is no focal slowing, epileptiform discharge, or seizure on the EEG. Normal routine EEG does not rule out underlying epilepsy. Clinical correlation is recommended. JOSE / ALIYAH: [id number] / [id number]
[2023-08-06 02:29] VITALS: RESP 16
[2023-08-06] MEDS: ASPIRIN 81 MG PO SCH (08:23)
[2023-08-06 08:42] VITALS: TEMP 98
[2023-08-06 11:44] VITALS: BP 122/77; PULSE 92
--- NOTE | 2023-08-06 13:27 | P.PN ---
Subjective Progress Note Date: 08/06/23 I am following-up with patient and feels back to baseline. Denies any new neurological issues. Objective - Vital Signs Vital signs: Vital Signs Temp 98.0 F 08/06/23 08:13 Pulse 92 08/06/23 11:23 Resp 16 08/06/23 11:23 BP 122/77 08/06/23 11:23 Pulse Ox 95 08/06/23 11:23 FiO2 Intake & Output 08/05/23 08/06/23 08/06/23 18:59 06:59 18:59 Intake Total 118 Balance 118 Weight 49.895 kg Intake: Oral 118 Other: Voiding Method Toilet # Voids 1 1 - Exam GENERAL: The patient is lying in bed and is not in acute distress. NEUROLOGICAL: Higher mental function: The patient is awake, alert, oriented to self, place and time. Patient is following commands. No aphasia and no neglect. Cranial nerves: The pupils are round, equal and reactive to light and accommodation. Visual harvey are full to confrontation throughout. Extraocular movement is intact no nystagmus is noted. Facial sensation is normal to touch throughout. The facial strength is normal throughout. Hearing is normal bilaterally to hand rub. Tongue is midline and moved [id number] without any difficulty. No dysarthria is noted. Shoulder shrug is normal bilaterally. Motor: The strength is 5 over 5 throughout. Normal tone and bulk. Cerebellum: Normal finger to nose heel to dove bilaterally. Sensation: Sensation is normal to touch throughout. Reflexes (right/left): 2+ throughout. Plantars are downgoing bilaterally. some of the workup during his hospital visit consisted of: White blood cell is normal. Sodium is 141, creatinine is 0.57, calcium 7.5, AST ALT is within normal limits Initial serum glucose is 126 Lipid panel is a triglyceride of 73, cholesterol 253, LDLs 123 and HDL 115. Vitamin B12: 1223 Serum folate 28 TSH: 0.946 Ammonia <9 HbA1c: 5.3 CT of the head is reported as no acute intracranial process. I personally r eviewed the CT of the head and I agree there is no acute subacute process. 2-D echo was reported as normal left ventricle. Function. Mild biatrial enlargement. No evidence for atrial septal defect. Routine EEG: Normal. MRI Brain: no acute intracranial process abdomen. Couple of nonspecific punct ate subcortical white matter changes within the frontal lobe findings are nonspecific. carotid duplex is reported as telesales agent notes an aberrant waveform on image 45 likely corresponding to a PVC. Prominent plaque at the left ICA but without any hemodynamically significant stenosis. - Labs CBC & Chem 7: 08/04/23 17:42 08/04/23 17:42 Labs: Abnormal Lab Results - Last 24 Hours (Table) 08/04/23 08/05/23 Range/Units 17:42 17:34 Cholesterol 253.00 H (0.00-200.00) mg/dL HDL Cholesterol 115.00 H (40.00-60.00) mg/dL Vitamin B12 1223.0 H (200.0-944.0) pg/mL Assessment and Plan Assessment: This is a 67-year-old gentleman who presented to the hospital yesterday because of confusion and repeating herself. patient does not recall the episodes. On examination she has no focal deficit is back to baseline. Transient episode of confusion repeating herself: Unknown exact etiology/encephalopathy of unknown etiology. No acute stroke on MRI. EEG is normal. New onset hypertension on presentation as high as 150s over 80s Prominent plaque at the left ICA but without any hemodynamically significant stenosis seen on carotid duplex Plan: She was given aspirin 325 once by the ED physician. She was started on aspirin 81 mg daily and Lipitor 40 mg daily by the primary team Continue neurochecks Cardiac monitoring PT OT and LINK TRAINER MECHANIC are consulted Prominent plaque at the left ICA but without any hemodynamically significant stenosis. Recommend following-up with vascular surgery team as outpatient. Recommend a detailed neuropsych evaluation as outpatient for memory testing and following-up with neurologist as outpatient within 2 weeks. We'll defer the rest of the medical management to primary team For DVT prophylaxis the patient is on subcu heparin The plan is discussed with patient and primary team. Time with Patient: Less than 30
--- NOTE | 2023-08-07 18:31 | P.DS ---
Providers Date of admission: 08/04/23 20:41 Expected date of discharge: 08/06/23 Attending physician: Jaime Perez MD Consults: 08/04/23 20:43 Consult Physician Urgent Consulting Provider: Tacos Irizarry Consult Reason/Comments: Altered mental status, short-term memory loss Do you want consulting provider notified?: Yes Primary care physician: Nathalie Kim Hospital Course: 67-year-old female with no significant past medical history presents the ED. She was at her dentist appointment when she started having behavioral changes with disorientation and confusion. She was found to be repeating the same sentences. Her family got concerned which prompted them to bring her to the ED. Denies facial droop, focal neurologic deficit. No falls or head trauma. No hi story of CVA or TN. In the ED, she underwent extensive evaluation. BP 159/84, HR 93, RR 16, T 98F, 99% on RA. CBC, coag panel, CMP performed significant for hematocrit of 46.5, glucose 126 and calcium 10.5. Troponin less than 0.012. Urinalysis 2+ ketone, small blood, small leukocyte esterase with [address] brain negative for acute process. EKG sinus rhythm with no ST elevation or depression. Patient is admitted for further workup and management. 08/04 Patient was seen and examined. Family at bedside. Forgetfulness improved reported by family. No concerns. UDS negative. Echocardiogram normal preserved EF mild MR/AR/TR. 08/05 Patient was seen and examined. Family at bedside. No new complaints. MRI brain negative for acute CVA. EEG negative. Carotid doppler plaque left ICA without stenosis noted. Cleared by Neurology for discharge. Advised neuropsyc outpatient for formal cognitive eval. General: non toxic, no distress, appears at stated age Derm: warm, dry Head: atraumatic, normocephalic, symmetric Eyes: EOMI, no lid lag, anicteric sclera Mouth: no lip lesion, mucus membranes moist Cardiovascular: S1S2 reg, no murmur Lungs: CTA bilateral, no rhonchi, no rales , no accessory muscle use Ext: no gross muscle atrophy, no edema, no contractures Neuro: no focal neuro deficits Psych: Alert, oriented, appropriate affect Discharge Diagnosis: Forgetfulness and Confusion Left ICA plaque Abnormal UA This complex discharge took 35 minutes to complete. Patient Condition at Discharge: Stable Plan - Discharge Summary New Discharge Prescriptions: New Aspirin 81 mg PO DAILY #30 tab Atorvastatin [Lipitor] 40 mg PO DAILY #30 tab Continue Multivitamins, Thera [Multivitamin (formulary)] 1 tab PO DAILY Calcium Carbonate [Calcium] 1,200 mg PO DAILY Cholecalciferol [Vitamin D3 (25 Mcg = 1000 Iu)] 25 mcg PO DAILY Discharge Medication List Calcium Carbonate [Calcium] 1,200 mg PO DAILY 08/04/23 [History] Cholecalciferol [Vitamin D3 (25 Mcg = 1000 Iu)] 25 mcg PO DAILY 08/04/23 [History] Multivitamins, Thera [Multivitamin (formulary)] 1 tab PO DAILY 08/04/23 [History] Aspirin 81 mg PO DAILY #30 tab 08/06/23 [Rx] Atorvastatin [Lipitor] 40 mg PO DAILY #30 tab 08/06/23 [Rx] Follow up Appointment(s)/Referral(s): None,Stated [REFERRING] - 1-2 days (Please find a PCP and schedule a follow up appointment SHIRIN.) Adarsh Hanley DO [STAFF PHYSICIAN] - 1 Week (Neurologist; please schedule follow up appointment SHIRIN. Referral is from Dr. Ballesteros.) Patient Instructions/Handouts: Transient Ischemic Attack (DC) Activity/Diet/Wound Care/Special Instructions: Please get referral for neuropsychiatry for formal cognitive eval with your PCP. Discharge/Stand Alone Forms: Area PCPs Discharge Disposition: HOME SELF-CARE
== END 2023-08-06 13:45 | disposition home or self-care (01) ==
LOC: EC 17:26 → 3SCARD 20:41
PROVIDERS: ADMIT Internal Medicine; ATTEND Internal Medicine
DX: R41.0 Disorientation, unspecified (principal); I11.9 Hypertensive heart disease without heart failure; I65.22 Occlusion and stenosis of left carotid artery; R82.90 Unspecified abnormal findings in urine
CPT/HCPCS: 36415; 95816; 93005; 93306; 97161; 97165; 92523; 80061; 80053; 84443; 82330; 82607; 82140; 82746; 84484; 85025; 85610; 85730; 81001; 80306; 83036; 93880; 70450; 70551; G0378 ×3; J1644 ×2; 96360; 96361; 96372; 99285

== ENCOUNTER → 2023-08-26 | Outpatient (CLI) | payer MEDICARE, BC ==
--- NOTE | 2023-08-26 19:22 | MR ---
EXAMINATION TYPE: MR angio head wo con DATE OF EXAM: 08/26/2023 7:05 PM CLINICAL INDICATION:Female, 68 years old with history of G45.9 TIA R41.82 ALTERED MENTAL STATUS, UNSP ECIFIE;, TIA, AMS. COMPARISON: 06/15/2023 Technical: 3-D [id number] Axial with MIP reconstruction created on a separate workstation.. IV Contrast: None Findings: Vertebral arteries: The vertebral arteries are patent. Vertebral arteries are: Codominant. Basilar artery: The basilar artery is intact. The basilar artery bifurcation is normal. Internal Carotid arteries: The cervical, petrous, cavernous and supraclinoid segments are normal. SANDIE: Patent with no evidence of aneurysm. ACOM: Present without evidence of aneurysm. MCA: Patent with no evidence of aneurysm. MAT CUTTER: Patent with no evidence of aneurysm. origin of the right posterior cerebral artery. PCOM: Hypoplastic left. IMPRESSION: No evidence of aneurysm or significant stenosis.
== END | disposition home or self-care (01) ==
LOC: RADMRIMAIN 17:49
PROVIDERS: ATTEND Family Medicine
DX: G45.9 Transient cerebral ischemic attack, unspecified (principal); R41.82 Altered mental status, unspecified
CPT/HCPCS: 70544